=== PATIENT | female | born 1995 | race Caucasian/White ===

== ENCOUNTER 2022-05-22 08:18 | Inpatient (IN) ==
[2022-05-22] MEDS ORDERED: Levalbuterol Neb 1.25 MG/3 ML ONE (08:27)
[2022-05-22] MEDS ORDERED: Levalbuterol Neb 1.25 MG/3 ML IH ONE ×3 (08:31→12:15)
[2022-05-22] MEDS ORDERED: methylPREDNISolone 125 MG/2 ML VIAL IVP ONE (08:51)
[2022-05-22] MEDS ORDERED: 0.9 % Sodium Chloride 1,000 ML IVC ONE (08:51)
[2022-05-22 09:02] LABS: Basophils # 0.2 K/mcL (0.0-0.2); Basophils % 0.8 %; Eosinophils # 2.1 K/mcL (0.0-0.6); Eosinophils % 10.4 %; Hematocrit 38.8 % (35.3-44.9); Hemoglobin 13.3 g/dL (11.5-15.4); Immature Granulocytes % 0.5 % (0-4); Lymphocytes # 1.7 K/mcL (0.6-4.6); Lymphocytes % 8.1 %; Mean Corpuscular HGB Conc 34.3 g/dL (31.6-35.5); Mean Corpuscular Hemoglobin 30.6 pg (28.0-33.3); Mean Corpuscular Volume 89.2 fL (83.0-100.0); Mean Platelet Volume 9.4 fL (9.4-12.4); Monocytes # 1.6 K/mcL (0.0-1.3); Monocytes % 7.6 %; Platelet Count 349 K/mcL (140-400); Red Blood Count 4.35 M/mcL (3.82-4.97); Red Cell Distribution Width 13.2 % (11.5-14.5); Segmented Neutrophils % 72.6 %; White Blood Count 20.6 K/mcL (4.3-11.1)
[2022-05-22 09:32] LABS: Platelet Estimate Normal (Normal)
[2022-05-22 09:37] LABS: Alanine Aminotransferase 15 Units/L (7-52); Albumin 4.6 g/dL (3.5-5.7); Albumin/Globulin Ratio 1.7 (1.1-2.2); Alkaline Phosphatase 75 Units/L (34-104); Aspartate Amino Transferase 18 Units/L (13-39); BUN/Creatinine Ratio 14 (6-26); Bilirubin,Direct 0.2 mg/dL (0.0-0.2); Bilirubin,Indirect 0.3 mg/dL (0.0-1.0); Bilirubin,Total 0.5 mg/dL (0.3-1.0); Blood Urea Nitrogen 9 mg/dL (6-20); Calcium 9.2 mg/dL (8.6-10.3); Carbon Dioxide 22 mEq/L (23-29); Chloride 105 mEq/L (98-107); Globulin 2.7 g/dL (2.4-3.5); Glucose 107 mg/dL (70-105); Osmolality,Calculated 281 (280-300); Potassium 4.3 mEq/L (3.5-5.1); Sodium 136 mEq/L (136-145); Total Protein 7.3 g/dL (6.4-8.9)
[2022-05-22] MEDS ORDERED: levoFLOXacin 750 MG/150 ML 750 MG/150 ML BAG IVPB ONE (09:38)
[2022-05-22] MEDS ORDERED: *HR* LORazepam 1 MG TABLET PO ONE (10:36)
[2022-05-22 11:22] LABS: ABG Base Excess -5 mEq/L (-2 to 3); ABG HCO3 19 mEq/L (21-27); ABG Oxygen Saturation 94 % (95-98); ABG PCO2 31 mmHg (35-45); ABG PH 7.39 pH Units (7.32-7.45); ABG PO2 71 mmHg (85-104); ABG TCO2 20 mEq/L (20-26)
[2022-05-22] MEDS ORDERED: Acetaminophen 325 MG TABLET PO PRN (12:29)
[2022-05-22] MEDS ORDERED: Ondansetron 4 MG/2 ML VIAL IVP PRN (12:29)
[2022-05-22] MEDS ORDERED: Naloxone 0.4 MG/ML INJ IVP PRN (12:29)
[2022-05-22] MEDS: Ipratropium/Albuterol Neb 3 ML IH SCH ×4 (12:36→23:06)
[2022-05-22 15:14] LABS: Adenovirus Not Detected (Not Detect); Bordetella Pertussis Not Detected (Not Detect); Chlamydophila pneumoniae Not Detected (Not Detect); Coronavirus 229E Not Detected (Not Detect); Coronavirus HKU1 Not Detected (Not Detect); Coronavirus NL63 Not Detected (Not Detect); Coronavirus OC43 Not Detected (Not Detect); Human Metapneumovirus Not Detected (Not Detect); Human Rhinovirus/Enterovirus DETECTED (Not Detect); Influenza A Subtype 2009 H1 Not Detected (Not Detect); Influenza B Not Detected (Not Detect); Mycoplasma pneumoniae Not Detected (Not Detect); Parainfluenza Virus 1 Not Detected (Not Detect); Parainfluenza Virus 2 Not Detected (Not Detect); Parainfluenza Virus 3 Not Detected (Not Detect); Parainfluenza Virus 4 Not Detected (Not Detect); Respiratory Syncytial Virus Not Detected (Not Detect); SARS-CoV-2 Not Detected (Not Detect)
[2022-05-22] MEDS ORDERED: methylPREDNISolone 125 MG/2 ML VIAL IVP SCH ×2 (18:00)
[2022-05-22] MEDS: MethylPREDNISolone 40 MG/ML VIAL IVP SCH (21:12)
[2022-05-22] MEDS: *HR* LORazepam 1 MG TABLET PO PRN (21:12)
[2022-05-22] MEDS ORDERED: Ipratropium/Albuterol Neb 3 ML IH PRN (21:26)
[2022-05-22 22:57] LABS: Amphetamine Screen,Urine Positive ng/mL (Cutoff=1000); Barbiturate Screen,Urine Negative ng/mL (Cutoff=200); Benzodiazepines Screen,Urine Negative ng/mL (Cutoff=200); Cannabinoid Screen,Urine Positive ng/mL (Cutoff = 50); Cocaine Screen,Urine Negative ng/mL (Cutoff= 300); Opiate Screen,Urine Negative ng/mL (Cutoff=300); Phencyclidine Screen,Urine Negative ng/mL (Cutoff=25)
[2022-05-23] MEDS: MethylPREDNISolone 40 MG/ML VIAL IVP SCH ×4 (03:22→21:08)
[2022-05-23] MEDS: Ipratropium/Albuterol Neb 3 ML IH SCH ×4 (04:22→15:20)
[2022-05-23 04:53] LABS: Hematocrit 38.6 % (35.3-44.9); Hemoglobin 13.2 g/dL (11.5-15.4); Mean Corpuscular HGB Conc 34.2 g/dL (31.6-35.5); Mean Corpuscular Hemoglobin 31.2 pg (28.0-33.3); Mean Corpuscular Volume 91.3 fL (83.0-100.0); Mean Platelet Volume 9.5 fL (9.4-12.4); Platelet Count 360 K/mcL (140-400); Red Blood Count 4.23 M/mcL (3.82-4.97); Red Cell Distribution Width 13.3 % (11.5-14.5); White Blood Count 14.8 K/mcL (4.3-11.1)
[2022-05-23 05:06] LABS: BUN/Creatinine Ratio 15 (6-26); Blood Urea Nitrogen 11 mg/dL (6-20); Calcium 9.8 mg/dL (8.6-10.3); Carbon Dioxide 22 mEq/L (23-29); Chloride 105 mEq/L (98-107); Glucose 142 mg/dL (70-105); Magnesium 2.3 mg/dL (1.6-2.6); Osmolality,Calculated 280 (280-300); Potassium 4.3 mEq/L (3.5-5.1); Sodium 134 mEq/L (136-145)
[2022-05-23] MEDS: *HR* Enoxaparin 40 MG/0.4 ML SYRINGE SQ SCH (06:09)
[2022-05-23] MEDS: Fluticasone Propionate Nasal 50 MCG/SPRAY BOTTLE NS SCH (09:31)
[2022-05-23] MEDS: levoFLOXacin 750 MG/150 ML 750 MG/150 ML BAG IVPB SCH (09:31)
[2022-05-23] MEDS: *HR* LORazepam 1 MG TABLET PO PRN (09:46)
[2022-05-23] MEDS: 0.9 % Sodium Chloride 1,000 ML IVC SCH (14:30)
[2022-05-23] MEDS: Ipratropium Neb 0.5 MG NEBULIZER IH SCH ×2 (19:49→23:56)
[2022-05-23] MEDS: Levalbuterol Neb 1.25 MG/3 ML IH SCH ×2 (19:52→23:56)
[2022-05-24] MEDS: *HR* LORazepam 1 MG TABLET PO PRN (00:11)
[2022-05-24] MEDS: 0.9 % Sodium Chloride 1,000 ML IVC SCH (00:28)
[2022-05-24] MEDS: MethylPREDNISolone 40 MG/ML VIAL IVP SCH ×4 (03:35→20:59)
[2022-05-24] MEDS: Ipratropium Neb 0.5 MG NEBULIZER IH SCH ×5 (03:38→20:18)
[2022-05-24] MEDS: Levalbuterol Neb 1.25 MG/3 ML IH SCH ×5 (03:38→20:18)
[2022-05-24] MEDS: *HR* Enoxaparin 40 MG/0.4 ML SYRINGE SQ SCH (04:01)
[2022-05-24 04:38] LABS: Hematocrit 33.2 % (35.3-44.9); Mean Corpuscular HGB Conc 33.7 g/dL (31.6-35.5); Mean Corpuscular Hemoglobin 31.1 pg (28.0-33.3); Mean Corpuscular Volume 92.2 fL (83.0-100.0); Mean Platelet Volume 9.8 fL (9.4-12.4); Platelet Count 348 K/mcL (140-400); Red Cell Distribution Width 13.4 % (11.5-14.5); White Blood Count 21.6 K/mcL (4.3-11.1)
[2022-05-24 04:45] LABS: Hemoglobin 11.2 g/dL (11.5-15.4)
[2022-05-24 04:53] LABS: Alanine Aminotransferase 11 Units/L (7-52); Albumin 3.9 g/dL (3.5-5.7); Albumin/Globulin Ratio 1.7 (1.1-2.2); Alkaline Phosphatase 58 Units/L (34-104); Aspartate Amino Transferase 11 Units/L (13-39); BUN/Creatinine Ratio 19 (6-26); Bilirubin,Total 0.2 mg/dL (0.3-1.0); Blood Urea Nitrogen 15 mg/dL (6-20); Calcium 8.8 mg/dL (8.6-10.3); Carbon Dioxide 21 mEq/L (23-29); Chloride 106 mEq/L (98-107); Globulin 2.3 g/dL (2.4-3.5); Glucose 139 mg/dL (70-105); Magnesium 2.1 mg/dL (1.6-2.6); Osmolality,Calculated 287 (280-300); Potassium 3.7 mEq/L (3.5-5.1); Sodium 137 mEq/L (136-145); Total Protein 6.2 g/dL (6.4-8.9)
[2022-05-24] MEDS: Fluticasone Propionate Nasal 50 MCG/SPRAY BOTTLE NS SCH (09:13)
[2022-05-24] MEDS: levoFLOXacin 750 MG/150 ML 750 MG/150 ML BAG IVPB SCH (09:13)
[2022-05-24] MEDS: MetroNIDAZOLE 500 MG/100 ML 500 MG/100 ML BAG IVPB SCH (15:24)
[2022-05-24 20:14] LABS: Adenovirus Not Detected (Not Detect); Bordetella Pertussis Not Detected (Not Detect); Chlamydophila pneumoniae Not Detected (Not Detect); Coronavirus 229E Not Detected (Not Detect); Coronavirus HKU1 Not Detected (Not Detect); Coronavirus NL63 Not Detected (Not Detect); Coronavirus OC43 Not Detected (Not Detect); Human Metapneumovirus Not Detected (Not Detect); Human Rhinovirus/Enterovirus DETECTED (Not Detect); Influenza A Subtype 2009 H1 Not Detected (Not Detect); Influenza B Not Detected (Not Detect); Mycoplasma pneumoniae Not Detected (Not Detect); Parainfluenza Virus 1 Not Detected (Not Detect); Parainfluenza Virus 2 Not Detected (Not Detect); Parainfluenza Virus 3 Not Detected (Not Detect); Parainfluenza Virus 4 Not Detected (Not Detect); Respiratory Syncytial Virus Not Detected (Not Detect); SARS-CoV-2 Not Detected (Not Detect)
[2022-05-24] MEDS: Budesonide/Formoterol 160/4.5 1 PUFF INH IH SCH (21:38)
[2022-05-25] MEDS: Ipratropium Neb 0.5 MG NEBULIZER IH SCH ×7 (00:07→23:28)
[2022-05-25] MEDS: Levalbuterol Neb 1.25 MG/3 ML IH SCH ×7 (00:07→23:28)
[2022-05-25] MEDS: MetroNIDAZOLE 500 MG/100 ML 500 MG/100 ML BAG IVPB SCH ×3 (00:08→15:17)
[2022-05-25] MEDS: MethylPREDNISolone 40 MG/ML VIAL IVP SCH ×3 (03:44→15:17)
[2022-05-25] MEDS: *HR* Enoxaparin 40 MG/0.4 ML SYRINGE SQ SCH (04:02)
[2022-05-25 05:00] LABS: Basophils % 0.1 %; Hematocrit 31.4 % (35.3-44.9); Hemoglobin 10.6 g/dL (11.5-15.4); Lymphocytes # 1.5 K/mcL (0.6-4.6); Lymphocytes % 9.8 %; Mean Corpuscular HGB Conc 33.8 g/dL (31.6-35.5); Mean Corpuscular Hemoglobin 31.1 pg (28.0-33.3); Mean Corpuscular Volume 92.1 fL (83.0-100.0); Mean Platelet Volume 9.5 fL (9.4-12.4); Monocytes # 1.1 K/mcL (0.0-1.3); Monocytes % 7.3 %; Neutrophils # 12.6 K/mcL (1.6-8.9); Platelet Count 325 K/mcL (140-400); Red Blood Count 3.41 M/mcL (3.82-4.97); Red Cell Distribution Width 13.2 % (11.5-14.5); Segmented Neutrophils % 81.8 %; White Blood Count 15.4 K/mcL (4.3-11.1)
[2022-05-25 05:16] LABS: BUN/Creatinine Ratio 26 (6-26); Blood Urea Nitrogen 18 mg/dL (6-20); Calcium 8.7 mg/dL (8.6-10.3); Carbon Dioxide 25 mEq/L (23-29); Chloride 104 mEq/L (98-107); Glucose 129 mg/dL (70-105); Magnesium 2.1 mg/dL (1.6-2.6); Osmolality,Calculated 288 (280-300); Potassium 3.7 mEq/L (3.5-5.1); Sodium 137 mEq/L (136-145)
[2022-05-25] MEDS: Budesonide/Formoterol 160/4.5 1 PUFF INH IH SCH ×2 (08:03→21:26)
[2022-05-25] MEDS: Fluticasone Propionate Nasal 50 MCG/SPRAY BOTTLE NS SCH (08:57)
[2022-05-25] MEDS: levoFLOXacin 750 MG/150 ML 750 MG/150 ML BAG IVPB SCH (12:19)
[2022-05-25] MEDS: 0.9 % Sodium Chloride 1,000 ML IVC SCH (17:27)
[2022-05-26] MEDS: MetroNIDAZOLE 500 MG/100 ML 500 MG/100 ML BAG IVPB SCH ×2 (00:37→08:15)
[2022-05-26] MEDS: MethylPREDNISolone 40 MG/ML VIAL IVP SCH ×2 (00:37→08:15)
[2022-05-26] MEDS: 0.9 % Sodium Chloride 1,000 ML IVC SCH (03:17)
[2022-05-26] MEDS: Levalbuterol Neb 1.25 MG/3 ML IH SCH ×3 (03:54→12:19)
[2022-05-26] MEDS: Ipratropium Neb 0.5 MG NEBULIZER IH SCH ×3 (03:54→12:19)
[2022-05-26] MEDS: *HR* Enoxaparin 40 MG/0.4 ML SYRINGE SQ SCH (05:10)
[2022-05-26] MEDS: Budesonide/Formoterol 160/4.5 1 PUFF INH IH SCH (07:22)
[2022-05-26 07:25] VITALS: BP 103/61; PULSE 69; RESP 14; TEMP 97.8
[2022-05-26] MEDS: Fluticasone Propionate Nasal 50 MCG/SPRAY BOTTLE NS SCH (08:15)
[2022-05-26 09:03] LABS: Basophils % 0.1 %; Hematocrit 34.1 % (35.3-44.9); Hemoglobin 11.4 g/dL (11.5-15.4); Immature Granulocytes % 0.7 % (0-4); Lymphocytes # 1.6 K/mcL (0.6-4.6); Lymphocytes % 12.9 %; Mean Corpuscular HGB Conc 33.4 g/dL (31.6-35.5); Mean Corpuscular Hemoglobin 30.7 pg (28.0-33.3); Mean Corpuscular Volume 91.9 fL (83.0-100.0); Mean Platelet Volume 9.2 fL (9.4-12.4); Monocytes # 0.9 K/mcL (0.0-1.3); Monocytes % 7.3 %; Neutrophils # 9.7 K/mcL (1.6-8.9); Platelet Count 332 K/mcL (140-400); Red Blood Count 3.71 M/mcL (3.82-4.97); Red Cell Distribution Width 12.9 % (11.5-14.5); White Blood Count 12.3 K/mcL (4.3-11.1)
[2022-05-26 10:07] LABS: BUN/Creatinine Ratio 17 (6-26); Blood Urea Nitrogen 14 mg/dL (6-20); Calcium 8.6 mg/dL (8.6-10.3); Carbon Dioxide 26 mEq/L (23-29); Potassium 3.5 mEq/L (3.5-5.1)
[2022-05-26 10:08] LABS: Chloride 99 mEq/L (98-107); Glucose 120 mg/dL (70-105); Osmolality,Calculated 278 (280-300); Sodium 133 mEq/L (136-145)
[2022-05-26] MEDS: levoFLOXacin 750 MG/150 ML 750 MG/150 ML BAG IVPB SCH (10:40)
[2022-05-26] MEDS ORDERED: levoFLOXacin 500 MG TABLET PO ONE (11:14)
[2022-05-26 12:22] VITALS: O2SAT 99
== END 2022-05-26 13:15 | disposition home or self-care (01) | DRG 139 ==
LOC: EMEROOGRE 08:18 → INPGRE 08:18
PROVIDERS: ADMIT Family Medicine; ATTEND Family Medicine